=== PATIENT | female | born 1975 | race Caucasian/White ===

== ENCOUNTER 2016-05-14 12:29 | Emergency (ER) | payer OTHER | END 2016-05-14 14:23 | disposition home or self-care (01) | DX: S22.31XA Fracture of one rib, right side, initial encounter for closed fracture (principal); X58.XXXA Exposure to other specified factors, initial encounter; R05 Cough; F17.200 Nicotine dependence, unspecified, uncomplicated ==

== ENCOUNTER 2016-05-23 16:01 | Emergency (ER) | payer OTHER ==
[2016-05-23 16:06] VITALS: BP 135/88
--- NOTE | 2016-05-23 16:34 | ED Physician Documentation ---
History of Present Illness - Stated complaint Stated Complaint: RIB/ABD PX - Chief complaint Chief Complaint: General - History obtained from History obtained from: Patient - History of Present Illness Timing: Other (Since February 2016) - Additonal information Additional information: 40 y/o female with a cough since February has had complication of the coughing including a broken rib. She had pneumonia in February and improved on a course of zithromax. Her cough was better for a little while and then she has had a cough on and off since and she has coughing paroxysms. She has been back to the ED with pain in her ribs chest wall and abdomen and she has had a broken rib associated with the coughing. She has not been on a second course of antibiotic. Her coughing is happening during the day and she had a particularly long coughing paroxysm yesterday and she developed acute abdominal pain in the upper abdomen and this included the muscles on her abdominal wall tightening and swelling. Review of Systems Constitutional: reports: Fatigue. denies: Fever, Chills Eyes: denies: Decreased vision Ears: denies: Ear pain Nose: reports: Congestion Throat: denies: Sore throat Cardiac: reports: Chest pain / pressure. denies: Palpitations, Pedal edema, Calf pain Respiratory: reports: Cough. denies: Dyspnea, Wheezing GI: reports: Abdominal Pain. denies: Nausea, Vomiting : denies: Dysuria, Frequency Skin: denies: Rash Musculoskeletal: reports: Back pain. 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 : None HEENT: None Psych: Anxiety, ADD/ADHD Musculoskeletal: None Derm: None - Past Surgical History Past Surgical History: Yes Ortho: Other - Present Medications Home Medications: Ambulatory Orders Medication Instructions Recorded Confirmed Dextroamphetamine Sulfate 40 mg PO DAILY 04/29/16 05/03/16 [Dexedrine] Propranolol [Inderal] 10 mg PO DAILY 04/29/16 05/03/16 cloNIDine [Catapres] 0.1 mg PO DAILY 04/29/16 05/03/16 Cephalexin [Keflex] 500 mg PO TID #20 capsule 05/03/16 Hydrocodone/Acetaminophen [[place] 1 each PO Q4H PRN #30 tablet 05/03/16 7.5-325 Tablet] Naproxen 375 mg PO BID #20 tablet 05/03/16 Hydrocodone/Acetaminophen 1 - 2 each PO Q6H PRN #14 tablet 05/14/16 [Hydrocodon-Acetaminophen 5-325] Azithromycin [Zithromax] 250 mg PO DAILY #6 tablet 05/23/16 - Allergies Allergies/Adverse Reactions: Allergies Allergy/AdvReac Type Severity Reaction Status Date / Time No Known Drug Allergies Allergy Verified 01/31/16 19:28 - Social History Does the pt smoke?: Yes Smoking Status: Current every day smoker Does the pt drink ETOH?: Yes Does the pt have substance abuse?: No - Immunizations Immunizations are current?: Yes - POLST Patient has POLST: No PD ED PE NORMAL - Vitals Vital signs reviewed: Yes (hypertensive ) - General General: No acute distress, Well developed/nourished - HEENT HEENT: Atraumatic, PERRL, EOMI, Other (both TM's are inflamed mildly the left is worse than the right. There is not much distortion of the landmarks. ) - Neck Neck: Supple, no meningeal sign, No bony TTP - Cardiac Cardiac: RRR, No murmur, No gallop - Respiratory Respiratory: No respiratory distress, Clear bilaterally, Other (Tenderness along the costal margin on the right. No specifiic tenderness over the site of the prior rib fracture. ) - Abdomen Abdomen: Soft, Non tender, Other (No masses are evident and there is no specific tenderness now. The abdomen is not rigid. ) - Back Back: No CVA TTP, No spinal TTP - Derm Derm: Normal color, Warm and dry, No rash - Extremities Extremities: No deformity, No edema - Neuro Neuro: No motor deficit, No sensory deficit - Psych Psych: Normal mood, Normal affect Results - Vitals Vitals: Vital Signs - 24 hr 05/23/16 16:03 Temperature 36.8 C Heart Rate 87 Respiratory 20 Rate Blood Pressure 135/88 H O2 Saturation 100 Oxygen O2 Source Room air PD MEDICAL DECISION MAKING - ED course Complexity details: reviewed old records, reviewed results, re-evaluated patient , considered differential, d/w patient, d/w family ED course: 40 y/o female with coughing paroxysms since February and injuries associated with the coughing has OM on exam and despite the benign appearance of the infection the symptoms continue and treatment is indicated. She is given PO decadron 10mg and we will put her back on a z-chayito. Departure - Departure Disposition: 01 Home, Self Care Clinical Impression: Otitis media Qualifiers: Otitis media type: suppurative Laterality: bilateral Chronicity: acute Recurrence: not specified as recurrent Spontaneous tympanic membrane rupture: without spontaneous rupture Qualified Code(s): H66.003 - Acute suppurative otitis media without spontaneous rupture of ear drum, bilateral Strain of abdominal wall Qualifiers: Encounter type: initial encounter Qualified Code(s): S39.011A - Strain of muscle, fascia and tendon of abdomen, initial encounter Strain of chest wall Qualifiers: Encounter type: initial encounter Qualified Code(s): S29.011A - Strain of muscle and tendon of front wall of thorax, initial encounter Condition: Stable Instructions: ED Otitis Media Abx Tx, ED Strain Abd Muscle, ED Strain Chest Wall Follow-Up: ANAB[facility] Rushing [Provider Group] Prescriptions: Azithromycin [Zithromax] 250 mg PO DAILY #6 tablet
[2016-05-23] MEDS ORDERED: DEXAMETHASONE 10 MG/ML VIAL ONE (16:51)
[2016-05-23] MEDS: DEXAMETHASONE 10 MG/ML VIAL PO STA (16:54)
== END 2016-05-23 16:57 | disposition home or self-care (01) ==
LOC: ED 16:01
DX: S39.011A Strain of muscle, fascia and tendon of abdomen, initial encounter (principal); S29.011A Strain of muscle and tendon of front wall of thorax, initial encounter; X50.3XXA Overexertion from repetitive movements, initial encounter; H66.003 Acute suppurative otitis media without spontaneous rupture of ear drum, bilateral; J45.909 Unspecified asthma, uncomplicated; F17.200 Nicotine dependence, unspecified, uncomplicated
CPT/HCPCS: 99283; 99284

== ENCOUNTER 2016-06-24 18:22 | Emergency (ER) | payer OTHER ==
[2016-06-24] MEDS ORDERED: ALBUTEROL NEB 2.5 MG/3 ML INH STA (19:51)
[2016-06-24] MEDS ORDERED: DEXAMETHASONE 10 MG/ML VIAL PO STA (19:52)
[2016-06-24] MEDS ORDERED: ALBUTEROL NEB 2.5 MG/3 ML INH ONE (19:58)
[2016-06-24] MEDS ORDERED: DEXAMETHASONE 10 MG/ML VIAL ONE (19:58)
[2016-06-24] MEDS ORDERED: CHERRY SYRUP 10 ML UDC PO ONE (19:58)
== END 2016-06-24 20:42 | disposition home or self-care (01) ==
DX: J06.9 Acute upper respiratory infection, unspecified (principal); B97.89 Other viral agents as the cause of diseases classified elsewhere; F17.200 Nicotine dependence, unspecified, uncomplicated
CPT/HCPCS: 71020; 93005; 93010; 99283; 99284; A9270; J7613

== ENCOUNTER 2016-07-06 10:13 | Outpatient (CLI) | payer OTHER | END 2016-07-06 10:14 | disposition home or self-care (01) | DX: R07.81 Pleurodynia (principal) | CPT/HCPCS: 78306; A9503 ==

== ENCOUNTER 2016-08-18 18:53 | Emergency (ER) | payer OTHER | END 2016-08-18 20:07 | disposition home or self-care (01) | DX: J40 Bronchitis, not specified as acute or chronic (principal); R03.0 Elevated blood-pressure reading, without diagnosis of hypertension; J45.909 Unspecified asthma, uncomplicated; J32.9 Chronic sinusitis, unspecified; Z87.891 Personal history of nicotine dependence ==

== ENCOUNTER 2016-09-28 19:09 | Emergency (ER) | payer OTHER | END 2016-09-28 20:24 | disposition home or self-care (01) | DX: R42 Dizziness and giddiness (principal); R03.0 Elevated blood-pressure reading, without diagnosis of hypertension; F17.200 Nicotine dependence, unspecified, uncomplicated ==

== ENCOUNTER 2017-04-26 14:54 | Emergency (ER) | payer OTHER ==
[2017-04-26 15:09] VITALS: BP 128/83
--- NOTE | 2017-04-26 16:02 | ED Physician Documentation ---
PD HPI URI - Stated complaint Stated Complaint: COUGH/FLU SYMPTOMS - Chief complaint Chief Complaint: Resp - History obtained from History obtained from: Patient - History of Present Illness Timing - onset: Other (1 month worth of illness with productive cough, sinus and ear pressure. Also sore throat. No possibility of and no fever.) Review of Systems Constitutional: reports: Fatigue. denies: Fever, Chills Ears: reports: Ear pain Nose: reports: Rhinorrhea / runny nose, Congestion, Sinus pressure / pain Throat: reports: Sore throat Respiratory: reports: Cough. 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 : None HEENT: None Psych: Anxiety, ADD/ADHD Musculoskeletal: None Derm: None - Past Surgical History Past Surgical History: Yes General: Appendectomy Ortho: Other - Present Medications Home Medications: Ambulatory Orders Medication Instructions Recorded Confirmed Amox/Clav 500/125 [Augmentin 1 tab PO BID 08/18/16 08/18/16 500/125] Dextroamphetamine Sulfate 40 mg PO DAILY 08/18/16 08/18/16 [Dexedrine] Guaifenesin/Pseudoephedrne HCl 1 each PO BID PRN #20 tab.er.12h 08/18/16 [Mucinex D ER 600-60 mg Tablet] predniSONE [Deltasone] 20 mg PO [id number] #21 tab 08/18/16 Albuterol Sulfate [Proventil Hfa 1 - 2 puffs IH Q4H PRN #1 04/26/17 Inhaler] hfa.aer.ad Amoxicillin 500 mg PO TID #30 capsule 04/26/17 guaiFENesin/CODEINE [Robitussin AC] 5 - 10 ml PO Q6H PRN #120 ml 04/26/17 predniSONE [Deltasone] 60 mg PO DAILY 5 Days tablet 04/26/17 - Allergies Allergies/Adverse Reactions: Allergies Allergy/AdvReac Type Severity Reaction Status Date / Time No Known Drug Allergies Allergy Verified 04/26/17 15:08 - Social History Does the pt smoke?: No Smoking Status: Former smoker Does the pt drink ETOH?: Yes Does the pt have substance abuse?: No - Immunizations Immunizations are current?: Yes - POLST Patient has POLST: No PD ED PE NORMAL - Vitals Vital signs reviewed: Yes - General General: Alert and oriented X 3, No acute distress - HEENT HEENT: Other (Tender to both sinuses, maxillary. TMs are retracted. Oropharynx are normal.) - Neck Neck: Supple, no meningeal sign, No bony TTP - Cardiac Cardiac: RRR, No murmur - Respiratory Respiratory: No respiratory distress, Other (Rhonchorous and wheezy throughout without focal findings) - Abdomen Abdomen: Soft, Non tender - Neuro Neuro: Alert and oriented X 3, Normal speech - Psych Psych: Normal mood, Normal affect Results - Vitals Vitals: Vital Signs - 24 hr 04/26/17 15:05 Temperature 36.8 C Heart Rate 68 Respiratory 20 Rate Blood Pressure 128/83 H O2 Saturation 100 Oxygen O2 Source Room air PD MEDICAL DECISION MAKING - ED course ED course: 41-year-old woman with predominantly viral illness but evidence of sinusitis. Encouraged her to quit smoking "I just did." Departure - Departure Disposition: 01 Home, Self Care Clinical Impression: Sinusitis Qualifiers: Sinusitis location: maxillary Chronicity: acute Recurrence: recurrent Qualified Code(s): J01.01 - Acute recurrent maxillary sinusitis Condition: Good Record reviewed to determine appropriate education?: Yes Instructions: ED Sinusitis Abx Tx Prescriptions: Albuterol Sulfate [Proventil Hfa Inhaler] 1 - 2 puffs IH Q4H PRN #1 hfa.aer.ad PRN Reason: Cough Amoxicillin 500 mg PO TID #30 capsule guaiFENesin/CODEINE [Robitussin AC] 5 - 10 ml PO Q6H PRN #120 ml PRN Reason: Cough predniSONE [Deltasone] 60 mg PO DAILY 5 Days tablet Comments: Call your doctor to arrange a follow-up appointment, make the next available appointment. In the interim, return anytime if worse or if new symptoms develop. Your blood pressure was elevated today on check into the emergency department. This does not mean that you have hypertension, it is a common phenomenon to come to the emergency department and have elevated blood pressure. I recommend that you see your primary care physician within the week to have it rechecked when you are feeling better.
== END 2017-04-26 16:07 | disposition home or self-care (01) ==
LOC: ED 14:54
DX: J01.01 Acute recurrent maxillary sinusitis (principal); R03.0 Elevated blood-pressure reading, without diagnosis of hypertension; Z87.891 Personal history of nicotine dependence
CPT/HCPCS: 99283

== ENCOUNTER 2017-05-14 17:50 | Emergency (ER) | payer OTHER ==
[2017-05-14 18:23] VITALS: BP 136/82
--- NOTE | 2017-05-14 19:02 | XRAY Report ---
EXAM: CHEST RADIOGRAPHY EXAM DATE: 05/14/2017 06:35 PM. CLINICAL HISTORY: Cough. COMPARISON: 06/24/2016 chest x-ray. TECHNIQUE: 2 views. FINDINGS: Lungs/Pleura: No focal opacities evident. No pleural effusion. No pneumothorax. Normal volumes. Mediastinum: Heart and mediastinal contours are unremarkable. Other: None. IMPRESSION: Normal 2-view chest radiography. [facility] Referring Provider Line: [phone] SITE ID: [id number]
[2017-05-14] MEDS ORDERED: DOXYCYCLINE 100 MG TABLET PO STA (20:19)
[2017-05-14] MEDS ORDERED: predniSONE 20 MG TABLET PO STA ×2 (20:19→20:23)
[2017-05-14] MEDS ORDERED: HYDROcod/ACET 5/325 Prepack 6 PO STA (20:19)
--- NOTE | 2017-05-14 20:23 | ED Physician Documentation ---
PD HPI CHEST PAIN - Stated complaint Stated Complaint: CHEST CONGESTION/COUGH - Chief complaint Chief Complaint: Resp - History obtained from History obtained from: Patient - History of Present Illness Timing - onset: Other (41-year-old smoker is been dealing with a productive cough for several months now. It is productive of white foamy substance and she is cough so hard she is hurt her right chest wall. There is no associated fever. No possibility of . She plans to move to a warmer climate because of this. 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 HEENT: None Psych: Anxiety, ADD/ADHD Musculoskeletal: None Derm: None - Past Surgical History Past Surgical History: Yes General: Appendectomy Ortho: Other - Present Medications Home Medications: Ambulatory Orders Medication Instructions Recorded Confirmed Dextroamphetamine Sulfate 40 mg PO DAILY 08/18/16 05/14/17 [Dexedrine] Doxycycline Hyclate 100 mg PO BID #20 tablet 05/14/17 HYDROcod/ACETAM 5/325 [[place] 5/325] 1 - 2 ea PO Q6H PRN #15 tablet 05/14/17 predniSONE [Deltasone] 80 mg PO DAILY 5 Days tablet 05/14/17 - Allergies Allergies/Adverse Reactions: Allergies Allergy/AdvReac Type Severity Reaction Status Date / Time No Known Drug Allergies Allergy Verified 05/14/17 18:23 - Social History Does the pt smoke?: No Smoking Status: Never smoker Does the pt drink ETOH?: Yes Does the pt have substance abuse?: No - Immunizations Immunizations are current?: Yes - POLST Patient has POLST: No PD ED PE NORMAL - Vitals Vital signs reviewed: Yes - General General: Alert and oriented X 3, No acute distress - Neck Neck: Supple, no meningeal sign, No bony TTP - Cardiac Cardiac: RRR, No murmur - Respiratory Respiratory: Other (Mild expiratory wheezes, good air motion) - Abdomen Abdomen: Soft, Non tender - Neuro Neuro: Alert and oriented X 3, Normal speech - Psych Psych: Normal mood, Normal affect Results - Vitals Vitals: Vital Signs - 24 hr 05/14/17 18:20 Temperature 36.8 C Heart Rate 89 Respiratory 20 Rate Blood Pressure 136/82 H O2 Saturation 100 Oxygen O2 Source Room air - Rads (name of study) CXR 2v Radiology: EMP read contemporaneously (normal) Departure - Departure Disposition: Home, Self Care Clinical Impression: Bronchitis Condition: Good Record reviewed to determine appropriate education?: Yes Instructions: ED Bronchitis Asthmatic Prescriptions: Doxycycline Hyclate 100 mg PO BID #20 tablet HYDROcod/ACETAM 5/325 [[place] 5/325] 1 - 2 ea PO Q6H PRN #15 tablet PRN Reason: Pain predniSONE [Deltasone] 80 mg PO DAILY 5 Days tablet Comments: It is imperative to quit smoking to get better. Call your doctor to arrange a follow-up appointment, make the next available appointment. In the interim, return anytime if worse or if new symptoms develop. Your blood pressure was elevated today on check into the emergency department. This does not mean that you have hypertension, it is a common phenomenon to come to the emergency department and have elevated blood pressure. I recommend that you see your primary care physician within the week to have it rechecked when you are feeling better. Do not drink or drive while taking narcotic pain medication. Note that many narcotic pain relievers also contain Tylenol/acetaminophen. Please ensure that your total dose of acetaminophen from all sources does not exceed 3 g (3000 mg) per day. You may get constipated while on this medication. Take a stool softener such as Colace twice a day while you are on it. Also add an [id number] laxative such as senna or MiraLAX on any day that you do not have a bowel movement. If you received a narcotic pain medication or sedative while in the emergency department, do not drive for the next 24 hours.
== END 2017-05-14 20:35 | disposition home or self-care (01) ==
LOC: ED 17:50
DX: J40 Bronchitis, not specified as acute or chronic (principal); F17.200 Nicotine dependence, unspecified, uncomplicated; R03.0 Elevated blood-pressure reading, without diagnosis of hypertension
CPT/HCPCS: 71046; 99283; A9270; J7512